=== PATIENT | male | born 1955 | race Caucasian/White ===

== ENCOUNTER 2019-10-10 11:09 | Emergency (ER) | payer OTHER ==
--- OUTSIDE RECORDS SUMMARY | 2019-10-10 11:17 | XMS REPORT | Continuity of Care Document ---
:1955 External Reference #:[id number] Author Name LUCINDA Perales (transmitted by agent of provider Lynnette Plascencia) Address [address] [place] [address] Care Team Providers Name Role Phone Pema Murray MD - Family Medicine Care Team Information Pensionholder Information Clerk Problems Active Problems Provider Date Taking medication LUCINDA Perales Onset: 10/17/2014 Malaise and fatigue Atul Morse M.D. Onset: 04/12/2013 Cervical spondylosis without myelopathy Atul Morse M.D. Onset: 04/12/2013 Medications Fancy Stitcher (Current) Use Encounter Atul Morse M.D. Onset: Rheumatoid arthritis Atul Morse M.D. Onset: 04/12/2013 Social History Type Date Description Comments Sex Unknown ETOH Use Currently consumes alcohol Tobacco Use Start: Unknown Patient has never smoked Smoking Status Reviewed: 08/23/19 Patient has never smoked Allergies, Adverse Reactions, Alerts Description No Known Drug Allergies Medications Active Medications SIG Qnty Indications Ordering Provider Date Prednisone 40tabs ZacofiZHANG MartinP 08/23/2019 10mg Tablets Tobramycin 1 drop in each 5ml Zsofia ZHANG MondragonP 08/23/2019 0.3% Solution eye every 4 hours x 7 days Remicade 600 mg every 8 M06.09 Benedicto Guzman, 09/10/2016 100mg Solution weeks M.D. Rec Amoxicillin Unknown 500mg Capsules Medications Administered in Office Medication SIG Qnty Indications Ordering Provider Date Technetium TC 99M David Murphy DO [facility] 02/20/2019 Tetrofosmin, Per Unit Dose Up To 40 Millicuries Injection Technetium TC 99M David Murphy DO [facility] 02/20/2019 Tetrofosmin, Per Unit Dose Up To 40 Millicuries Injection Immunizations Description No Information Available Vital Signs Date Vital Result Comment 08/23/2019 8:22am Height 72 inches 6'0" Weight 294.25 lb Heart Rate 85 /min BP Systolic Sitting 138 mmHg BP Diastolic Sitting 82 mmHg Body Temperature 97.5 F O2 % BldC Oximetry 96 % BMI (Body Mass Index) 39.9 kg/m2 05/21/2019 9:06am Height 72 inches 6'0" Weight 290.25 lb Heart Rate 81 /min BP Systolic 138 mmHg recheck 136/91 BP Diastolic 91 mmHg recheck 136/91 Body Temperature 97.4 F O2 % BldC Oximetry 95 % BMI (Body Mass Index) 39.4 kg/m2 Results Test Date Facility Test Result H/L Range Note Comp Metabolic 07/06/2019 [facility] Sodium 137 mmol/L Normal 135-[address] [place] [address] [phone] Potassium 4.5 mmol/L Normal 3.5-5.0 Chloride 106 mmol/L Normal 101-111 Co2 Carbon Dioxide 24 mmol/L Normal 22-32 Anion Gap 7 mmol/L Normal 2-11 Glucose 122 mg/dL High 70-100 Blood Urea Nitrogen 14 mg/dL Normal 6-24 Creatinine 1.14 mg/dL Normal 0.67-1.17 BUN/Creatinine Ratio 12.3 Normal 8-20 Calcium 8.7 mg/dL Normal 8.6-10.3 Total Protein 6.8 g/dL Normal 6.4-8.9 Albumin 4.1 g/dL Normal 3.2-5.2 Globulin 2.7 g/dL Normal 2-4 Albumin/Globulin Ratio 1.5 Normal 1-3 Total Bilirubin 0.40 mg/dL Normal 0.2-1.0 Alkaline Phosphatase 58 U/L Normal 34-104 Alt 43 U/L Normal 7-52 Ast 23 U/L Normal 13-39 Egfr Non- 64.5 >60 Egfr 78.0 >60 1 Laboratory test 07/06/2019 [facility] C Reactive 5.18 mg/L Normal <8.[address] [place] [address] [phone] CBC No Diff 07/06/2019 [facility] White Blood 6.0 Normal 3.5- 10.[address] Count 10^3/[place] [address] [phone] Red Blood Count 4.64 10^6/uL Normal 4.18-5.48 Hemoglobin 14.8 g/dL Normal 14.0-18.0 Hematocrit 43 % Normal 42-52 Mean Corpuscular Volume 93 fL Normal 80-94 Mean Corpuscular Hemoglobin 32 pg High 27-31 Mean Corpuscular HGB Conc 34 g/dL Normal 31-36 Red Cell Distribution Width 14 % Normal 10-15 Platelet Count 165 10^3/uL Normal 150-450 Mean Platelet Volume 9.2 fL Normal 7.4-10.4 Laboratory test 07/06/2019 [facility] Erythrocyte Sed 11 mm/Hr Normal 0-[address] [place] [address] [phone] Lipid Profile 05/21/2019 [facility] Triglycerides 138 mg/dL 2 (Trig/Chol/HDL) [address] [place] [address] [phone] Cholesterol 210 mg/dL 3 HDL Cholesterol 52.4 mg/dL 4 LDL Cholesterol 130 mg/dL 5 Laboratory test 05/21/2019 [facility] Glucose 110 mg/dL High 70-100 finding [address] [place] [address] [phone] Comp Metabolic 05/07/2019 [facility] Sodium 138 mmol/L Normal 135-145 Panel [address] [place] [address] [phone] Potassium 4.4 mmol/L Normal 3.5-5.0 Chloride 105 mmol/L Normal 101-111 Co2 Carbon Dioxide 25 mmol/L Normal 22-32 Anion Gap 8 mmol/L Normal 2-11 Glucose 106 mg/dL High 70-100 Blood Urea Nitrogen 11 mg/dL Normal 6-24 Creatinine 1.13 mg/dL Normal 0.67-1.17 BUN/Creatinine Ratio 9.7 Normal 8-20 Calcium 9.0 mg/dL Normal 8.6-10.3 Total Protein 6.7 g/dL Normal 6.4-8.9 Albumin 4.0 g/dL Normal 3.2-5.2 Globulin 2.7 g/dL Normal 2-4 Albumin/Globulin Ratio 1.5 Normal 1-3 Total Bilirubin 0.40 mg/dL Normal 0.2-1.0 Alkaline Phosphatase 63 U/L Normal 34-104 Alt 37 U/L Normal 7-52 Ast 22 U/L Normal 13-39 Egfr Non- 65.1 >60 Egfr 78.8 >60 6 Laboratory test 05/07/2019 [facility] C Reactive 5.38 mg/L Normal <8.[address] [place] [address] [phone] CBC No Diff 05/07/2019 [facility] White Blood 5.8 Normal 3.5- 10.[address] Count 10^3/[place] [address] [phone] Red Blood Count 4.72 10^6/uL Normal 4.18-5.48 Hemoglobin 15.0 g/dL Normal 14.0-18.0 Hematocrit 44 % Normal 42-52 Mean Corpuscular Volume 93 fL Normal 80-94 Mean Corpuscular Hemoglobin 32 pg High 27-31 Mean Corpuscular HGB Conc 34 g/dL Normal 31-36 Red Cell Distribution Width 14 % Normal 10-15 Platelet Count 156 10^3/uL Normal 150-450 Mean Platelet Volume 8.9 fL Normal 7.4-10.4 Laboratory test 05/07/2019 [facility] Erythrocyte Sed 10 mm/Hr Normal 0-[address] [place] [address] [phone] Comp Metabolic 03/12/2019 [facility] Sodium 139 Normal 135- [address] mmol/[place] [address] [phone] Potassium 4.3 mmol/L Normal 3.5-5.0 Chloride 105 mmol/L Normal 101-111 Co2 Carbon Dioxide 25 mmol/L Normal 22-32 Anion Gap 9 mmol/L Normal 2-11 Glucose 107 mg/dL High 70-100 Blood Urea Nitrogen 18 mg/dL Normal 6-24 Creatinine 1.22 mg/dL High 0.67-1.17 BUN/Creatinine Ratio 14.8 Normal 8-20 Calcium 9.3 mg/dL Normal 8.6-10.3 Total Protein 7.1 g/dL Normal 6.4-8.9 Albumin 4.3 g/dL Normal 3.2-5.2 Globulin 2.8 g/dL Normal 2-4 Albumin/Globulin Ratio 1.5 Normal 1-3 Total Bilirubin 0.50 mg/dL Normal 0.2-1.0 Alkaline Phosphatase 66 U/L Normal 34-104 Alt 41 U/L Normal 7-52 Ast 22 U/L Normal 13-39 Egfr Non- 59.6 >60 Egfr 72.1 >60 7 Laboratory test 03/12/2019 [facility] C Reactive 6.64 mg/L Normal <8.[address] [place] [address] [phone] CBC No Diff 03/12/2019 [facility] White Blood 6.7 Normal 3.5- 10.[address] Count 10^3/[place] [address] [phone] Red Blood Count 5.01 10^6/uL Normal 4.18-5.48 Hemoglobin 15.7 g/dL Normal 14.0-18.0 Hematocrit 46 % Normal 42-52 Mean Corpuscular Volume 92 fL Normal 80-94 Mean Corpuscular Hemoglobin 31 pg Normal 27-31 Mean Corpuscular HGB Conc 34 g/dL Normal 31-36 Red Cell Distribution Width 14 % Normal 10.5-15 Platelet Count 192 10^3/uL Normal 150-450 Mean Platelet Volume 8.5 fL Normal 7.4-10.4 Laboratory test 03/12/2019 [facility] Erythrocyte Sed 3 mm/Hr Normal 0-[address] [place] [address] [phone] 1 Because ethnic data is not always readily available, this report includes an eGFR for both -Americans and non- Americans. The National Kidney Disease Education Program (NKDEP) does not endorse the use of the MDRD equation for patients that are not between the ages of 18 and 70, are , have extremes of body size, muscle mass, or nutritional status, or are non- or non-. According to the National Kidney Foundation, irrespective of diagnosis, the stage of the disease is based on the level of kidney function: Stage Description GFR(mL/min/1.73 m(2)) 1 Kidney damage with normal or decreased GFR 90 2 Kidney damage with mild decrease in GFR 60-89 3 Moderate decrease in GFR 30-59 4 Severe decrease in GFR 15-29 5 Kidney failure <15 (or dialysis) 2 Desirable: <150 Borderline High: 150-199 High: 200-499 Very High: >500 3 Desirable: <200 Borderline High: 200-239 High: >239 4 Low: <40 Desirable: 40-60 High: >60 5 Desirable: <100 Near Optimal: 100-129 Borderline High: 130-159 High: 160-189 Very High: >189 6 Because ethnic data is not always readily available, this report includes an eGFR for both -Americans and non- Americans. The National Kidney Disease Education Program (NKDEP) does not endorse the use of the MDRD equation for patients that are not between the ages of 18 and 70, are , have extremes of body size, muscle mass, or nutritional status, or are non- or non-. According to the National Kidney Foundation, irrespective of diagnosis, the stage of the disease is based on the level of kidney function: Stage Description GFR(mL/min/1.73 m(2)) 1 Kidney damage with normal or decreased GFR 90 2 Kidney damage with mild decrease in GFR 60-89 3 Moderate decrease in GFR 30-59 4 Severe decrease in GFR 15-29 5 Kidney failure <15 (or dialysis) 7 Because ethnic data is not always readily available, this report includes an eGFR for both -Americans and non- Americans. The National Kidney Disease Education Program (NKDEP) does not endorse the use of the MDRD equation for patients that are not between the ages of 18 and 70, are , have extremes of body size, muscle mass, or nutritional status, or are non- or non-. According to the National Kidney Foundation, irrespective of diagnosis, the stage of the disease is based on the level of kidney function: Stage Description GFR(mL/min/1.73 m(2)) 1 Kidney damage with normal or decreased GFR 90 2 Kidney damage with mild decrease in GFR 60-89 3 Moderate decrease in GFR 30-59 4 Severe decrease in GFR 15-29 5 Kidney failure <15 (or dialysis) Procedures Description No Information Available Medical Devices Description No Information Available Encounters Type Date Location Provider Dx Diagnosis Office Visit 05/21/2019 Rheumatology Jeovany Mondragon, M06.09 Rheumatoid 9:[facility]a [facility] arthritis w/o Ccmob rheumatoid factor, multiple sites Z79.899 Other ferry terminal supervisor (current) drug therapy R73.01 Impaired fasting glucose E66.9 Obesity, unspecified Z13.220 Encounter for screening for lipoid disorders Assessments Date Code Description Provider 08/23/2019 M06.09 Rheumatoid arthritis without rheumatoid factor, Jeovany Garciak, HAIR BOILER multiple sit 08/23/2019 R73.01 Impaired fasting glucose Jeovany Mondragon, [facility] 08/23/2019 Z79.899 Other snf (current) drug therapy Zacofia Giancarlo, [facility] 05/21/2019 M06.09 Rheumatoid arthritis without rheumatoid factor, Zacofia Giancarlo, HAIR BOILER multiple sit 05/21/2019 Z79.899 Other snf (current) drug therapy Zacofia Giancarlo, [employer] BO[employer] 05/21/2019 R73.01 Impaired fasting glucose Jeovany Garciak, [facility] 05/21/2019 E66.9 Obesity, unspecified Jeovany Giancarlo, [facility] 05/21/2019 Z13.220 Encounter for screening for lipoid disorders LUCINDA Perales Plan of Treatment 08/23/2019 - Jeovany Mondragon, FNPM06.09 Rheumatoid arthritis without rheumatoid factor, multiple sitNew Labs:CBC Auto Diff, Ordered: 08/23/19Comp Metabolic Panel, Ordered: 08/23/19C Reactive Protein, Ordered: 08/23/19Erythrocyte Sed Rate, Ordered: 08/23/19Comments:Your inflammatory markers are within normal range Your latest laboratory tests indicate no detectable impairment of kidney and liver functions.Will continue with the present dose of Remicade.Continue with regular blood tests. You have a standing lab order on file. Please call the office if you developany sign or symptoms of infection or acute change in your health.Follow up:3 month labs rexlpS82.01 Impaired fasting vugkjbaE38.899 Other ferry terminal supervisor (current) drug therapy Functional Status Description No Information Available Mental Status Description No Information Available Referrals Description No Information Available
--- OUTSIDE RECORDS SUMMARY | 2019-10-10 11:17 | XMS REPORT | Continuity of Care Document ---
:1955 External Reference #:[id number] Author Name Pema Murray M.D. 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 Onset: 09/12/2015 Social History Type Date Description Comments Sex Unknown ETOH Use Occasionally consumes alcohol Tobacco Use Start: Unknown Patient has never smoked Allergies, Adverse Reactions, Alerts Description No Known Drug Allergies Medications Active Medications SIG Qnty Indications Ordering Provider Date Amoxicillin 2 by mouth twice 40tabs J20.9 Pema Murray, 09/25/2019 500mg a day M.D. Tablets Prednisone 2 tab by mouth 8tabs J20.9 Pema Murray, 09/25/2019 20mg Tablets daily 4 days M.D. Tobramycin 2 drops both eyes 5ml H10.023 Pema Murray, 09/25/2019 0.3% three times a day M.D. Solution Remicade IV Every 8 WKS as M05.40 Pema Murray, 09/12/2015 100mg Solution Per Rehumat M.D. Rec History Medications Amoxicillin 2 by mouth 40tabs J20.9 Pema Murray 08/21/2019 - 500mg twice a day M., M.D. 08/30/2019 Tablets Prednisone 2 tab by mouth 8tabs J20.9 Pema Murray 08/21/2019 - 20mg Tablets daily 4 days M., M.D. 08/24/2019 Tobramycin 2 drops both 5ml H10.023 Pema Murray 08/21/2019 - 0.3% eyes three M. M.D. 08/25/2019 Solution times a day Amoxicillin 2 by mouth 40tabs J20.9 Trevor, Luis Manuelannel 04/24/2019 - 500mg twice a day M., M.D. 04/29/2019 Tablets Prednisone 2 tab by mouth 8tabs J20.9 [facility] annel 04/24/2019 - 20mg Tablets daily 4 days M., M.D. 07/31/2019 Immunizations Description No Information Available Vital Signs Date Vital Result Comment 09/25/2019 10:44am BP Systolic 160 mmHg BP Diastolic 82 mmHg Height 73 inches 6'1" Weight 298.00 lb BMI (Body Mass Index) 39.3 kg/m2 Heart Rate 83 /min Respiratory Rate 17 /min 08/21/2019 1:43pm BP Systolic 136 mmHg BP Diastolic 78 mmHg Height 73 inches 6'1" Weight 292.00 lb BMI (Body Mass Index) 38.5 kg/m2 Heart Rate 113 /min Respiratory Rate 18 /min Results Description No Information Available Procedures Date Code Description Status 09/25/2019 82815 Spirometry Completed 09/25/2019 97471 Tympanometry Completed Medical Devices Description No Information Available Encounters Type Date Location Provider Dx Diagnosis Office Visit 09/25/2019 [facility] Pema Murray L20.9 Atopic dermatitis, 11:00a M.D. 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 [facility] E55.9 Vitamin D deficiency, unspecified H91.93 Unspecified hearing loss, bilateral R94.31 Abnormal electrocardiogram [ECG] [EKG] E78.2 Mixed hyperlipidemia J20.9 Acute bronchitis, unspecified R06.02 Shortness of breath R05 Cough R09.81 Nasal congestion H10.023 Other mucopurulent conjunctivitis, bilateral J01.40 Acute pansinusitis, unspecified H66.93 Otitis media, unspecified, bilateral Office Visit 08/21/2019 2:30p [facility] Pema Murray L20.9 Atopic dermatitis, Ulysses Stearns 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 09/25/2019 J30.9 Allergic rhinitis, unspecified Pema Murray M.D. 09/25/2019 M15.9 Polyosteoarthritis, unspecified Pema Murray M.D. 09/25/2019 M05.40 Rheumatoid myopathy with rheumatoid Pema Murray M.D. arthritis of unspecified site 09/25/2019 E55.9 Vitamin D deficiency, unspecified Pema Murray M.D. 09/25/2019 H91.93 Unspecified hearing loss, bilateral Pema Murray M.D. 09/25/2019 R94.31 Abnormal electrocardiogram [ECG] [EKG] Pema Murray M.D. 09/25/2019 E78.2 Mixed hyperlipidemia Pema Murray M.D. 09/25/2019 J20.9 Acute bronchitis, unspecified Pema Murray M.D. 09/25/2019 R06.02 Shortness of breath Pema Murray M.D. 09/25/2019 R05 Cough Pema Murray M.D. 09/25/2019 R09.81 Nasal congestion Pema Murray M.D. 09/25/2019 H10.023 Other mucopurulent conjunctivitis, bilateral Pema Murray M.D. 09/25/2019 J01.40 Acute pansinusitis, unspecified Pema Murray M.D. 09/25/2019 H66.93 Otitis media, unspecified, bilateral Pema Murray M.D. 08/21/2019 L20.9 Atopic dermatitis, unspecified Pema Murray M.D. 08/21/2019 J30.9 Allergic rhinitis, unspecified Pema Murray M.D. 08/21/2019 M15.9 Polyosteoarthritis, unspecified Pema Murray M.D. 08/21/2019 M05.40 Rheumatoid myopathy with rheumatoid Pema Murray M.D. arthritis of unspecified site 08/21/2019 E55.9 Vitamin D deficiency, unspecified Pema Murray M.D. 08/21/2019 H91.93 Unspecified hearing loss, bilateral Pema Murray M.D. 08/21/2019 R94.31 Abnormal electrocardiogram [ECG] [EKG] Pema Murray M.D. 08/21/2019 E78.2 Mixed hyperlipidemia Pema Murray M.D. 08/21/2019 J20.9 Acute bronchitis, unspecified Pema Murray M.D. 08/21/2019 R06.02 Shortness of breath Pema Murray M.D. 08/21/2019 R05 Cough Pema Murray M.D. 08/21/2019 R09.81 Nasal congestion Pema Murray M.D. 08/21/2019 H10.023 Other mucopurulent conjunctivitis, bilateral Pema Murray M.D. 04/24/2019 L20.9 Atopic dermatitis, unspecified Pema Murray M.D. 04/24/2019 J30.9 Allergic rhinitis, unspecified Pema Murray M.D. 04/24/2019 M15.9 Polyosteoarthritis, unspecified Pema Murray M.D. 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 arthritis of unspecified 04/24/2019 E55.9 Vitamin D deficiency, unspecified Pema Murray M.D. 04/24/2019 H91.93 Unspecified hearing loss, bilateral Pema Murray M.D. 04/24/2019 R94.31 Abnormal electrocardiogram [ECG] [EKG] Pema Murray M.D. 04/24/2019 E78.2 Mixed hyperlipidemia Pema Murray M.D. 04/24/2019 J20.9 Acute bronchitis, unspecified Pema Murray M.D. 04/24/2019 R06.02 Shortness of breath Pema Murray M.D. 04/24/2019 R05 Cough Pema Murray M.D. 04/24/2019 R09.81 Nasal congestion Pema Murray M.D. Plan of Treatment 09/25/2019 - Pema Murray M.D.L20.9 Atopic dermatitis, unspecifiedComments: SKIN CARE INSTRUCTIONS LOTION OR BABY OIL 2-3 APPLICATION PER DAYUSE MOISTURIZING SOAPAVOID PROLONGED WATER EXPOSUREAVOID USING HOT WATER IN EBESDEX59.9 Allergic rhinitis, unspecifiedComments:INCREASE PO FLUID USE ANTIHISTAMINE PRN SECOND HAND SMOKING [id number] Polyosteoarthritis, unspecifiedComments:EXERCISE/HEAT/MESSAGETYLENOL OR MOTRIN PRNAVOID HEAVY LIFTINGWT LOSSM05.40 Rheumatoid myopathy with rheumatoid arthritis of unspecified siteComments:EXERCISE/HEAT/MESSAGE F/U WITH REMATOLOGY COUNCELLING AND JOVUSCDOEEMT14.9 Vitamin D deficiency, unspecifiedComments: INCREASE EXPOSURE TO SUNREVIEW OF DIETH91.93 Unspecified hearing loss, lrsfdsbjjO74.31 Abnormal electrocardiogram [ECG] [EKG]Comments:RHCMVJJV19.2 Mixed hyperlipidemiaComments:DIET REVIEWED CONTINUE DIETWT LOSSF/U LAB FBWJ20.9 Acute bronchitis, unspecifiedNew Medication:Amoxicillin 500 mg - 2 by mouth twice a dayPrednisone 20 mg - 2 tab by mouth daily 4 daysR06.02 Shortness of zlufceJ25 XqhuqN71.81 Nasal levluxyoxbT22.023 Other mucopurulent conjunctivitis , bilateralNew Medication:Tobramycin 0.3 % - 2 drops both eyes three times a dayJ01.40 Acute pansinusitis, cstwngrsuvhE84.93 Otitis media, unspecified, bilateral Functional Status Functional Condition Comment Date Status Glasses Active Mental Status Description No Information Available Referrals Description No Information Available
--- OUTSIDE RECORDS SUMMARY | 2019-10-10 11:17 | XMS REPORT | Continuity of Care Document ---
:1955 External Reference #:[id number] Author Name Pema Murray M.D. Address [address] [place] [address] Problems Active Problems Provider Date Myopathy due [...] by mouth twice 40tabs J20.9 Pema Murray, 08/21/2019 500mg a day M.D. Tablets Prednisone 2 tab by mouth 8tabs J20.9 Pema Murray, 08/21/2019 20mg Tablets daily 4 days M.D. Tobramycin 2 drops both eyes 5ml H10.023 Pema Murray, 08/21/2019 0.3% three times a day M.D. Solution Remicade IV Every 8 WKS as M05.40 Pema Murray, 09/12/2015 100mg Solution Per Rehumat M.D. Rec History Medications Amoxicillin 2 by mouth 40tabs J20.9 Pema Murray, 04/24/2019 - 500mg twice a day M.D. 04/29/2019 Tablets Prednisone 2 tab by mouth 8tabs J20.9 Pema Murray, 04/24/2019 - 20mg Tablets daily 4 days M.D. 07/31/2019 Immunizations Description No Information Available Vital Signs Date Vital Result Comment 08/21/2019 1:43pm BP Systolic 136 mmHg BP Diastolic 78 mmHg Height 73 inches 6'1" Weight 292.00 lb BMI (Body Mass Index) 38.5 kg/m2 Heart Rate 113 /min Respiratory Rate 18 /min 04/24/2019 8:30am BP Systolic 150 mmHg BP Diastolic 92 mmHg Height 73 inches 6'1" Weight 291.00 lb BMI (Body Mass Index) 38.4 kg/m2 Heart Rate 92 /min Body Temperature 97.6 F Respiratory Rate 18 /min Results Description No Information Available Procedures Description No Information Available Medical Devices Description No Information Available Encounters Type Date Location Provider Dx Diagnosis Office Visit 08/21/2019 [facility] Pema Murray L20.Zoe Atopic dermatitis, 2:30p Ulysses 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 08/21/2019 J30.9 Allergic rhinitis, unspecified Pema Murray M.D. 08/21/2019 M15.9 Polyosteoarthritis, unspecified TrevorPema M.D. 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 arthritis of unspecified site 08/21/2019 E55.9 Vitamin D deficiency, unspecified Pema Murray M.D. 08/21/2019 H91.93 Unspecified hearing loss, bilateral TrevorPema morton M.D. 08/21/2019 R94.31 Abnormal electrocardiogram [ECG] [EKG] [...] M.D. 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 arthritis of unspecified 04/24/2019 E55.9 Vitamin [...] 04/24/2019 R09.81 Nasal congestion Pema Murray M.D. 03/06/2019 L20.9 Atopic dermatitis, unspecified Pema Murray M.D. 03/06/2019 J30.9 Allergic rhinitis, unspecified Pema Murray M.D. 03/06/2019 M15.9 Polyosteoarthritis, unspecified Pema Murray M.D. 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 arthritis of unspecified 03/06/2019 E55.9 Vitamin D deficiency, unspecified Pema Murray M.D. 03/06/2019 H91.93 Unspecified hearing loss, bilateral Pema Murray M.D. 03/06/2019 R94.31 Abnormal electrocardiogram [ECG] [EKG] Pema Murray M.D. 03/06/2019 E78.2 Mixed hyperlipidemia Pema Murray M.D. Plan of Treatment 08/21/2019 - Pema Murray M.D.L20.9 Atopic dermatitis, unspecifiedComments: SKIN CARE INSTRUCTIONS LOTION OR BABY OIL 2-3 APPLICATION PER DAYUSE MOISTURIZING SOAPAVOID PROLONGED WATER EXPOSUREAVOID USING HOT WATER IN SHOWERFollow up:1 bzdvrU48.9 Allergic rhinitis, unspecifiedComments:INCREASE PO FLUID USE ANTIHISTAMINE PRN SECOND HAND SMOKING JRQRRTQSYH87.9 Polyosteoarthritis, unspecifiedComments:EXERCISE/HEAT/MESSAGETYLENOL OR MOTRIN PRNAVOID HEAVY LIFTINGWT LOSSM05.40 Rheumatoid myopathy with rheumatoid arthritis of unspecified siteNew Labs:Sed Rate, Ordered: 08/21/19Comments: EXERCISE/HEAT/MESSAGE F[facility] AND HCEGBRSEIHLF96.9 Vitamin D deficiency, unspecifiedNew Labs:Vitamin D 25 Hydroxy, Ordered: Comments:INCREASE EXPOSURE TO SUNREVIEW OF DIETH91.93 Unspecified hearing loss , ovsjfsasyB95.31 Abnormal electrocardiogram [ECG] [EKG]Comments:MPIHQJQW57.2 Mixed hyperlipidemiaNew Labs:CBC With Diff, Ordered: 08/21/19CMP, Ordered: 08/21Lipid, Ordered: 08/21/19TSH, Ultrasenstive, Ordered: 08/21/19Comments:DIET REVIEWED CONTINUE DIETWT LOSSF/U LAB FBWJ20.9 Acute bronchitis, unspecifiedNew Medication:Amoxicillin 500 mg - 2 by mouth twice a dayPrednisone 20 mg - 2 tab by mouth daily 4 daysR06.02 Shortness of ghnwdbT16 ZazkpG29.81 Nasal fhnpjlkoqwN04.023 Other mucopurulent conjunctivitis, bilateralNew Medication: Tobramycin 0.3 % - 2 drops both eyes three times a day Functional Status Functional Condition Comment Date Status Glasses Active Mental Status Description No Information Available Referrals Description No Information Available
--- NOTE | 2019-10-10 11:48 | UC ---
Eye Complaint HPI - HPI Summary HPI Summary: Patient presents to urgent care with 3 complaints. 1) patient states his eyes are red bilaterally intermittently burning. Patient states clear drainage like tearing. Patient states his been ongoing for 4 days. Patient states he's had this twice in the last 4 months and was diagnosed with conjunctivitis. Patient states he took any medical times and it seemed to improve but never completely resolved. Patient's concerned that there is something more going on he came in for second opinion. Patient does not wear corrective lenses. Patient denies any vision changes. No eye pain. No trauma. Of note, patient does sleep in a room with many splits and states it blows over his bed. There is not humidify. No sick contacts. No other upper respiratory symptoms. Patient previously saw an parts sales associate at the mall but this office is closed and he hasn't seen one since. Patient is on immunosuppressive medication for R 2) patient hasn't really had a cough. Patient states at times he brings up secretions in the motorboat mechanic inboard/outboard yellow in color. Patient states in the past she's had pneumonia. Patient does not think he has pneumonia now but is concerned that there is scar tissue or something as long as he previously smoked. Patient states at times the cough keeps him awake. He is not taking any medication because is concerned that affect his blood pressure where his RA. Patient requesting a chest x-ray to check for pneumonia today 3) concerning his blood pressure was high triaged. He is on any medications for this. Patient suffered a stroke or heart attack. Patient does not have a headache, vision changes, nausea vomiting or any other concerns. Patient states his urine up with been normal. He hasn't taken any decongestants. Patient's medications reviewed this visits is entered in the EMR with triage nurse. - History of Current Complaint Chief Complaint: UCEye Stated Complaint: EYE ISSUE Time Seen by Provider: 10/10/19 11:46 Hx Obtained From: Patient Pain Intensity: 0 - Allergies/Home Medications Allergies/Adverse Reactions: Allergies Allergy/AdvReac Type Severity Reaction Status Date / Time No Known Allergies Allergy Verified 10/10/19 11:36 PMH/Surg Hx/FS Hx/Imm Hx Previously Healthy: Yes - rheumatoid arthritis on immunosuppressants - Surgical History Surgical History: Yes Surgery Procedure, Year, and Place: cervical fusion 2004 - Family History Known Family History: Positive: Non-Contributory - Social History Occupation: Retired Lives: With Family Alcohol Use: Weekly Substance Use Type: None Smoking Status (MU): Never Smoked Tobacco Have You Smoked in the Last Year: No Review of Systems All Other Systems Reviewed And Are Negative: Yes Constitutional: Positive: Negative Skin: Positive: Negative Eyes: Positive: Drainage - Tearing, Eye Redness. Negative: Blurred Vision, Diplopia, Photophobia ENT: Positive: Negative Respiratory: Positive: Cough Cardiovascular: Positive: Negative Gastrointestinal: Positive: Negative Physical Exam - Summary Physical Exam Summary: Vital Signs Reviewed: Yes A+Ox3, no distress Eyes: CRISTOFER. EOM intact and full, crisp fundoscopic margins without photophobia. b/l injected, tearing ENT: Hearing grossly normal TM x 2 clear, mmoist, uvula midline, no exudate, no erythema Neck: Positive: Supple Respiratory: Positive: No respiratory distress, No accessory muscle use + CTA throughout no w/r Cardiovascular: RRR nl s1, s2 no m/r CBT <2 sec abd soft + BS nt/nd no guarding, no distension Musculoskeletal Exam: SCHUMACHER x 4 without difficulty Strength Intact, ROM Intact Neurological: Positive: Alert, + sensation throughout Psychological: Positive: Normal Response To examiner Skin: Positive: no rash, no ecchymosis Triage Information Reviewed: Yes Vital Signs: Initial Vital Signs Temp 98.3 F 10/10/19 11:37 Pulse 77 10/10/19 11:37 Resp 16 10/10/19 11:37 BP 154/102 10/10/19 11:37 Pulse Ox 99 10/10/19 11:37 Diagnostics - Radiology No standard instances Radiology Interpretation Completed By: Radiologist - Patient Name: KRISTY AGUILAR Medical Record#: [id number] Ordering Physician: Lyly Varma MD Acct.#: [id number] : 1954 Age: 64 Sex: M Location: [facility]RG[facility] Exam Date: 10/10/19 1232 ADM Status: REG ER Order Information: CHEST PA & LAT 2 VWS Accession Number : [id number] CPT: 33287 HISTORY: persistent cough, remicade COMPARISONS: March 11, 2007 VIEWS: 5: Frontal dual-energy and lateral views of the chest. FINDINGS: CARDIOMEDIASTINAL SILHOUETTE: The cardiomediastinal silhouette is normal. NASIM: The nasim are normal. PLEURA: The costophrenic angles are sharp. No pleural abnormalities are noted. LUNG PARENCHYMA: The lungs are clear. ABDOMEN: The upper abdomen is clear. There is no subphrenic gas. BONES AND SOFT TISSUES: Degenerative changes are noted along the spine. OTHER: None. IMPRESSION: NO ACTIVE CARDIOPULMONARY DISEASE. < Electronically signed by Av Villanueva MD in OV> 10/10/19 1308 Dictated By: Av Villanueva MD Dictated Date/Time: 10/10/19 1307 Transcribed Date/ Time: 10/10/191306 Copy to: CC:Lyly Varma MD; Benedicto Guzman MD Imaging - [facility] [address] [address] ph ([phone]) ph ([phone]) ph ([phone]) This report is only to be considered final once signed by the Provider(s) as displayed in the "<Electronically Signed by >" field (s). Absence of a signature indicates the report is in a draft status and still needs to be finalized. In the event this document was created by someone other than the signing Provider, the individual initiating the document will be listed in the "Entered by:" or "Dictated by:" kwon. 1 of 1 Re-Evaluation - Re-Evaluation First Eval Comment: reviewed CXR with pt. BP improved. f/u with ophto. PCP regarding BP Eye Complaint Course/Dx - Course Course Of Treatment: Patient presents to urgent care with 3 concerns. 1 patient came because of injected eyes that he's had twice in the past 2-3 months. Patient states no pain but the tearing. Patient seen his primary treated him with antibiotic spray patient wanted a second opinion. No photophobia no vision changes. Patient without any other URI symptoms. Patient also concerns blood pressure was elevated at triage. We'll reassess with a manual cuff. Patient without any end organ Concerning symptoms last week, patient with a cough. Patient states it feels productive but nothing comes up. Patient concerned as well history of smoking would like a chest x-ray. Patient is immunocompromised as he is on treatment for his artery. On exam vital signs are stable. Patient does have an elevated blood pressure. Will recheck manually. No enormous symptoms so will likely recommend follow-up with PCP Patient has mild intermittent cough during exam. Lungs are clear. We'll do a chest x-ray. Patient's eyes are noted to be injected and red. Patient without any photophobia. Concerned as patient states this is his third time and diagnosed with infectious conjunctivitis. I'm suspicious that this may be related to his heat blowing over bed and tries. Consider this could be related to his immunocompromised medications recommend patient follow with ophthalmology. I did call and speak to Dr. allen's office an outpatient appointment for tomorrow at 11 AM. Patient appreciated. - Differential Dx/Diagnosis Provider Diagnosis: Cough, Bilateral conjunctivitis Discharge ED - Sign-Out/Discharge Documenting (check all that apply): Patient Departure All imaging exams completed and their final reports reviewed: Yes - Discharge Plan Condition: Stable Disposition: HOME Prescriptions: Benzonatate CAP* [Tessalon 100 MG CAP*] 100 mg PO TID PRN #[id number] cap PRN Reason: Cough Patient Education Materials: Cerumen Impaction (ED), Eye Pain (ED), Acute Cough (ED) Referrals: Benedicto Guzman MD [Primary Care Provider] - Sherie Xavier [Medical Doctor] - (appt scheduled for 10/11/19 at 11: 30am - please bring your ID, insurance card, and list of current medications) Additional Instructions: For your eye: - Okay to apply warm moist washcloths for discomfort and to clean any dried drainage from her eyes. - Humidify the air in the room where you sleep - You have a follow-up appointment scheduled with the career specialist tomorrow at 11:30 AM. It's important to keep this appointment. Contact career specialist if you have any questions or concerns. 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 There is no signs of infection and evaluation of symptoms following irrigation. Be careful not to insert Q-tips all the way into your ear as this can push wax further in and make it become hard and stuck. Follow-up with your primary care provider for any future concerns related to ears For your cough: - The chest x-ray does not show any signs of pneumonia or extra fluid in her lungs. It's recommended to take Tessalon problem medication as prescribed for coughing. Humidifying the air in the room when he is sleeping also helping with her cough. If you develop shortness of breath, chest pain, fevers, or other concerns recommended to be reevaluated by her primary care provider at the urgent care center. - Billing Disposition and Condition Condition: STABLE Disposition: Home
[2019-10-10 13:01] VITALS: BP 145/88
== END 2019-10-10 13:43 | disposition home or self-care (01) ==
LOC: UCEAST 11:09
DX: R05 Cough (principal); H10.9 Unspecified conjunctivitis
CPT/HCPCS: 67700; 71046; 99213; G0463